=== PATIENT | male | born 1985 | race Two or more races ===

== ENCOUNTER 2017-08-21 17:04 | Emergency (ER) | payer MEDICAID ==
[~2017-08-21] VITALS: Ht 175.3 cm; Wt 84.3 kg
[~2017-08-21 17:04] MED LIST: SUPPLEMENTS
[2017-08-21 17:57] VITALS: BP 188/71
[2017-08-21 18:02] LABS: BASOPHILS # (AUTO) 0.04 x10^3/uL (0-0.1); BASOPHILS % (AUTO) 1 % (0-1); EOSINOPHILS # (AUTO) 0.11 x10^3/uL (0-0.4); EOSINOPHILS % (AUTO) 2 % (1-7); LYMPHOCYTES # (AUTO) 1.83 x10^3/uL (1-3.4); LYMPHOCYTES % (AUTO) 25 % (22-44); MD NO; MEAN CORPUSCULAR HEMOGLOBIN 28.9 pg (27.5-34.5); MEAN CORPUSCULAR HGB CONC 33.1 g/dL (33.2-36.2); MEAN CORPUSCULAR VOLUME 87.5 fL (81-97); MEAN PLATELET VOLUME 8.4 fL (7.4-10.4); MONOCYTES # (AUTO) 0.54 x10^3/uL (0.2-0.8); MONOCYTES % (AUTO) 8 % (2-9); NEUTROPHILS # (AUTO) 4.69 x10^3/uL (1.8-6.8); NEUTROPHILS % (AUTO) 65 % (42-75); PLATELET COUNT 313 x10^3/uL (130-400); RED BLOOD COUNT 5.22 x10^6/uL (4.38-5.82); RED CELL DISTRIBUTION WIDTH 13.7 % (9.4-14.8)
[2017-08-21 18:05] LABS: ANION GAP 5 mmol/L (5-15); CALCIUM 8.9 mg/dL (8.5-10.1); CHLORIDE 109 mmol/L (98-107); CREATININE 0.93 mg/dL (0.7-1.3)
== END 2017-08-21 19:01 | disposition home or self-care (01) ==
LOC: ED 18:57
DX: F41.1 Generalized anxiety disorder (principal); I10 Essential (primary) hypertension
CPT/HCPCS: 36415; 80048; 84443; 85025; 99284; Q0177

== ENCOUNTER 2017-09-29 09:08 | Emergency (ER) | payer MEDICAID ==
[~2017-09-29] VITALS: Ht 175.3 cm; Wt 86.0 kg
[2017-09-29 09:11] VITALS: BP 139/81
[2017-09-29 09:47] LABS: BASOPHILS # (AUTO) 0.05 x10^3/uL (0-0.1); BASOPHILS % (AUTO) 1 % (0-1); EOSINOPHILS % (AUTO) 2 % (1-7); LYMPHOCYTES # (AUTO) 1.04 x10^3/uL (1-3.4); LYMPHOCYTES % (AUTO) 20 % (22-44); MD NO; MEAN CORPUSCULAR HEMOGLOBIN 29.5 pg (27.5-34.5); MEAN CORPUSCULAR HGB CONC 33.9 g/dL (33.2-36.2); MEAN CORPUSCULAR VOLUME 86.9 fL (81-97); MEAN PLATELET VOLUME 8.2 fL (7.4-10.4); MONOCYTES # (AUTO) 0.37 x10^3/uL (0.2-0.8); MONOCYTES % (AUTO) 7 % (2-9); NEUTROPHILS # (AUTO) 3.67 x10^3/uL (1.8-6.8); NEUTROPHILS % (AUTO) 70 % (42-75); PLATELET COUNT 326 x10^3/uL (130-400); RED BLOOD COUNT 5.28 x10^6/uL (4.38-5.82); RED CELL DISTRIBUTION WIDTH 13.8 % (9.4-14.8)
[2017-09-29 09:57] LABS: ALBUMIN 4.1 g/dL (3.4-5.0); ANION GAP 6 mmol/L (5-15); CALCIUM 9.2 mg/dL (8.5-10.1); CHLORIDE 107 mmol/L (98-107); CREATININE 0.91 mg/dL (0.7-1.3)
[2017-09-29] MEDS ORDERED: methylPREDNISolone SOD SUCC 125 MG/2 ML ONE (10:40)
== END 2017-09-29 10:36 | disposition home or self-care (01) ==
LOC: ED 10:30
DX: Z00.00 Encounter for general adult medical examination without abnormal findings (principal); I10 Essential (primary) hypertension; H53.2 Diplopia; R63.1 Polydipsia
CPT/HCPCS: 36415; 80048; 82040; 85025; 99284

== ENCOUNTER 2017-10-12 15:23 | Emergency (ER) | payer MEDICAID ==
[~2017-10-12] VITALS: Ht 172.7 cm; Wt 85.0 kg
[2017-10-12 16:24] LABS: ANION GAP 5 mmol/L (5-15); CALCIUM 8.7 mg/dL (8.5-10.1); CHLORIDE 109 mmol/L (98-107); CREATININE 0.91 mg/dL (0.7-1.3)
[2017-10-12 16:25] LABS: BASOPHILS # (AUTO) 0.05 x10^3/uL (0-0.1); BASOPHILS % (AUTO) 1 % (0-1); EOSINOPHILS % (AUTO) 2 % (1-7); LYMPHOCYTES # (AUTO) 1.91 x10^3/uL (1-3.4); LYMPHOCYTES % (AUTO) 32 % (22-44); MD NO; MEAN CORPUSCULAR HEMOGLOBIN 28.8 pg (27.5-34.5); MEAN CORPUSCULAR VOLUME 87.1 fL (81-97); MEAN PLATELET VOLUME 8.3 fL (7.4-10.4); MONOCYTES # (AUTO) 0.47 x10^3/uL (0.2-0.8); MONOCYTES % (AUTO) 8 % (2-9); NEUTROPHILS # (AUTO) 3.41 x10^3/uL (1.8-6.8); NEUTROPHILS % (AUTO) 57 % (42-75); PLATELET COUNT 333 x10^3/uL (130-400); RED BLOOD COUNT 5.08 x10^6/uL (4.38-5.82)
[2017-10-12 16:28] LABS: TROPONIN I < 0.015 ng/mL (0.000-0.045)
[2017-10-12] MEDS ORDERED: CHLORDIAZEPOXIDE 10 MG CAPSULE ONE (16:36)
[2017-10-12] MEDS ORDERED: CHLORDIAZEPOXIDE 10 MG CAPSULE PO PRN (17:00)
[2017-10-12 17:17] VITALS: BP 124/82
== END 2017-10-12 17:31 | disposition home or self-care (01) ==
LOC: ED 17:29
DX: F41.1 Generalized anxiety disorder (principal); F43.0 Acute stress reaction; F17.290 Nicotine dependence, other tobacco product, uncomplicated
CPT/HCPCS: 36415; 71045; 80048; 82040; 84484; 85025; 93005; 99285; 99406

== ENCOUNTER 2017-11-07 02:38 | Emergency (ER) | payer MEDICAID ==
[~2017-11-07] VITALS: Ht 172.7 cm; Wt 89.9 kg
[2017-11-07] MEDS ORDERED: KETOROLAC 30 MG/1 ML IM ONE (03:30)
[2017-11-07] MEDS ORDERED: KETOROLAC 30 MG/1 ML ONE (03:37)
[2017-11-07 03:57] LABS: BASOPHILS # (AUTO) 0.03 x10^3/uL (0-0.1); BASOPHILS % (AUTO) 0 % (0-1); EOSINOPHILS % (AUTO) 1 % (1-7); LYMPHOCYTES # (AUTO) 1.52 x10^3/uL (1-3.4); LYMPHOCYTES % (AUTO) 20 % (22-44); MD NO; MEAN CORPUSCULAR HEMOGLOBIN 29.3 pg (27.5-34.5); MEAN CORPUSCULAR HGB CONC 33.4 g/dL (33.2-36.2); MEAN CORPUSCULAR VOLUME 87.8 fL (81-97); MEAN PLATELET VOLUME 8.4 fL (7.4-10.4); MONOCYTES # (AUTO) 0.55 x10^3/uL (0.2-0.8); MONOCYTES % (AUTO) 7 % (2-9); NEUTROPHILS # (AUTO) 5.26 x10^3/uL (1.8-6.8); NEUTROPHILS % (AUTO) 71 % (42-75); PLATELET COUNT 302 x10^3/uL (130-400); RED BLOOD COUNT 4.87 x10^6/uL (4.38-5.82); RED CELL DISTRIBUTION WIDTH 13.6 % (9.4-14.8)
[2017-11-07 04:11] LABS: ALANINE AMINOTRANSFERASE 39 U/L (12-78); ALBUMIN 3.8 g/dL (3.4-5.0); ANION GAP 6 mmol/L (5-15); CALCIUM 8.6 mg/dL (8.5-10.1); CHLORIDE 109 mmol/L (98-107); CREATININE 1.17 mg/dL (0.7-1.3)
[2017-11-07 04:13] LABS: ALKALINE PHOSPHATASE 102 U/L (45-117); TOTAL PROTEIN 7.5 g/dL (6.4-8.2)
[2017-11-07 04:19] LABS: CULTURE INDICATED? YES; MICROSCOPIC INDICATED
[2017-11-07 04:47] VITALS: BP 124/80
== END 2017-11-07 05:08 | disposition home or self-care (01) ==
LOC: ED 04:47
DX: N13.2 Hydronephrosis with renal and ureteral calculous obstruction (principal); I10 Essential (primary) hypertension; F41.9 Anxiety disorder, unspecified
CPT/HCPCS: 36415; 74176; 80053; 81001; 83690; 85025; 87086; 96372; 99285; J1885

== ENCOUNTER 2018-01-17 09:42 | Emergency (ER) | payer MEDICAID ==
[~2018-01-17] VITALS: Ht 175.3 cm; Wt 92.9 kg
[2018-01-17 09:45] VITALS: BP 134/84
== END 2018-01-17 10:57 | disposition home or self-care (01) ==
LOC: ED 10:55
DX: S09.93XA Unspecified injury of face, initial encounter (principal); I10 Essential (primary) hypertension; F41.1 Generalized anxiety disorder; X58.XXXA Exposure to other specified factors, initial encounter; Y93.89 Activity, other specified; Y92.89 Other specified places as the place of occurrence of the external cause; Y99.8 Other external cause status
CPT/HCPCS: 99281

== ENCOUNTER 2019-07-05 13:20 | Emergency (ER) | payer SELFPAY ==
[~2019-07-05] VITALS: Ht 165.1 cm; Wt 71.8 kg
[2019-07-05 13:27] VITALS: BP 136/95
== END 2019-07-05 15:06 | disposition home or self-care (01) ==
LOC: ED 13:41
DX: K60.0 Acute anal fissure (principal); K62.89 Other specified diseases of anus and rectum; I10 Essential (primary) hypertension
CPT/HCPCS: 99283